=== PATIENT | female | born 1970 | race Caucasian/White ===

== ENCOUNTER 2025-01-02 00:29 | Emergency (ER) | payer BC ==
[~2025-01-02] VITALS: Ht 160 cm; Wt 54.5 kg
[2025-01-02 00:37] VITALS: BP 106/67; PULSE 89; RESP 20; O2SAT 98
[2025-01-02] MEDS: TETanus/Pertussis (Acell)/Diphther VAC/PF (Tdap-Adult) 0.5ml syringe IMVAC ONE (01:12)
[2025-01-02] MEDS: LIDOcaine 1% W/epiNEPHrine 1:100,000 20ml vial SQ ONE (01:12)
--- NOTE | 2025-01-02 01:41 | Physician Documentation ---
History of Present Illness ~ Chief Complaint: Laceration Stated Complaint: ARM LAC Time Seen by MD: 01:04 HPI This is a 54-year-old previously healthy female who presents for evaluation of cut to the left forearm. She states she accidentally cut her forearm with a knife around 2300. She has been drinking. Reports immediate sharp nonradiating pain. Bleeding controlled on scene because her daughter is an RN. The particular palliating or aggravating factors. Uncertain of last tetanus. Adamantly denies any self-harm. She does drink. Tetanus Within 5 Years: Yes Medication Reconciliation Allergies: Coded Allergies: No Known Allergies (Unverified , 01/02/25) Past Medical History Past Medical History: No Pertinent History Alcohol Use: Occasionally Drug Use: none Review of Systems ROS 10 point review of systems was performed and unless noted above in HPI is negative for acute process/complaint. Physical Exam Vital Signs: Temperature: 98.0, Heart Rate: 89, Respiratory Rate: 20, BP: 106/67, Pulse Oximetry: 98, Weight: 54.500 Oxygen Flow Rate: 0 Physical Exam Physical examination: GENERAL: Awake, alert, oriented, GCS 15, no apparent distress, non-toxic a ppearing, answers questions, follows commands appropriately. Examined in bed 18., accompanied by son-in-law HEENT: Atraumatic, normocephalic, pupils equal, extraocular muscles intact Active gross movements, sclerae anicteric, mucus membranes moist, no stridor. NECK: Midline, no JVD CARDIOVASCULAR: Good skin perfusion without evidence of pallor, mottling. PULMONARY: Nonlabored, symmetric chest rise, no audible wheezing, no accessory muscle use, no respiratory distress, speaking in full sentences. GASTROINTESTINAL: Not distended. NEUROLOGIC: Lucid with normal mental status. Normal facial symmetry. Moves all extremities symmetrically and with purpose. No truncal ataxia. Speech is fluid without evidence of dysarthria or aphasia, no focal deficits appreciated. EXTREMITIES: Acute deformities Skin: warm, dry PSYCHIATRIC: Normal affect, normal insight, normal concentration. Focused exam: [4 cm laceration to the left forearm, partial depth with a exposed subcutaneous fat. Tendon is intact. Neurovascularly intact. No active bleeding.] Procedures Laceration/Wound Repair Laceration : Anesthesia: Lidocaine w/ Epi Prep: irrigated by physician Repaired: skin Suture Size/Type: 3-0 (For the) Number of Superficial Sutures: 6 Dressing Applied: none Tolerated Procedure Well?: yes, no complications Progress Results/Orders Results/Orders Completed Orders - SAUL COVARRUBIAS DO Tetanus/Pertuss/Diph Acell/Pf (Boostrix (01/02/25 01:05) Lidocaine 1% W/Epi 1:100,000 (Xylocaine (01/02/25 01:05) Medications Received in ER Medications (Trade) Dose Ordered Sig/Samy Route PRN Reason Start Time Stop Time Status Last Admin Dose Admin (Boostrix vaccine syringe) 0.5 ml ONCE ONCE IMVAC 01/02/25 01:05 01/02/25 01:06 DC 01/02/25 01:12 0.5 ML Vital Signs 01/02/25 00:37 Temp 98.0 Pulse 89 Resp 20 B/P (MAP) 106/67 Pulse Ox 98 O2 Flow Rate 0 Medical Decision Making Findings Facility Status: ED Holds, RME process The plan was discussed with the patient, who demonstrates clear understanding of the plan and is in agreement with the plan unless otherwise noted in the chart. All questions have been answered, all concerns were addressed unless otherwise documented. I was available throughout their ED stay for frequent reassessment and questions. Differential Diagnoses (considered and possible or likely): [Forearm laceration, acute traumatic pain, encounter for tetanus toxoid administration] ??Differential Diagnoses (considered and unlikely, not requiring evaluation currently): [No evidence of neurovascular injury] MDM Data Please see HPI for the following: Independent Historians and external Records Review. Historian: [Patient] Independent Historians: ?[Son-in-law] Medication Management: [Reviewed medication list] Social History and determinants: [Reviewed] Please see the body of the note for the following: Any independent interpretations of ECG, imaging studies. All vitals signs/haemodynamics, ordered tests were independently reviewed and interpreted by myself. Nursing triage complaint and vitals reviewed, additional nursing notes were r eviewed as available and I agree unless otherwise noted or documented in contradiction in the chart Vital Signs: Independently reviewed Labs: Independently interpreted Imaging: Independently interpreted Old Medical Records: Independently reviewed, see HPI for relevant summary and information Pulse Oximetry: [100%] interpreted as [normal on room air] by me Additionally notably showing: [Hemodynamically stable] Tests considered but not ordered include: [Hematologic workup and imaging has been considered but does not appear to be necessary given clinical nature of diagnosis] Social Determinants of Health Impact: Patient was evaluated in [facility], or [facility] [place] to healthcare due to below par ratio of patient to medical providers. [] Comorbid Conditions Impacting Present Evaluation and Care/Treatment: [None] Management Discussions with other Healthcare Providers: [None] Treatment and Disposition Medication Management (Given or considered): []. See EMR for details Consideration for Hospitalization/Escalation/Deescalation of Care: Admission for observation has been considered, [however the patient is able to tolerate p.o., their symptoms are controlled, they are able to rely on oral medications, and their chief complaint/diagnosis can be managed on outpatient basis.] ?ED Course:?[Laceration was repaired. Patient tolerated procedure well.] ?Shared decision making:?[Patient is hemodynamically stable for discharge home with follow with their primary care provider. [ ] Specific and cautious return precautions provided and discussed with full understanding. Any incidental findings were also discussed and follow up recommendations given. [] All questions answered. Patient/family were able to verbalize back return precautions. Patient/family agree to plan. Copies of imaging and laboratory studies were provided.] Code status:?FULL Please see the full Electronic Medical Record for full details of nursing documentation, medications list, other records of complete past medical history and conditions, vital signs, laboratory studies, and any radiologic study interpretations by radiologists. Portions of this note were completed using [employer] dictation software and as a result there may exist minor errors in spelling. I have reviewed elements of past family and social history and agree as included in note. Departure Disposition: 01 HOME / SELF CARE / HOMELESS Impression: Primary Impression: Forearm laceration Additional Impressions: Acute traumatic pain Tetanus toxoid inoculation Condition: Improved Discharge Instructions: Laceration Care, Adult, [id number] Additional Instructions: Please return for suture removal in 7-10 days Referrals: NO PRIMARY CARE PROVIDER (PCP) Education Educated: Patient, Family Educated regarding: diagnosis, treatment, prognosis, need for follow up Signature Scribe Signature: No scribe Attestation: Date: Jan 02, 2025 Time: 01:41 This note accurately reflects clinical decisions, work performed by myself, Saul Covarrubias, SAUL TOBIN DO Jan 02, 2025 01:41
[2025-01-02 01:50] VITALS: TEMP 98
== END 2025-01-02 01:51 | disposition home or self-care (01) ==
LOC: ER 00:29
DX: S51.812A Laceration without foreign body of left forearm, initial encounter (principal); G89.11 Acute pain due to trauma; Z72.89 Other problems related to lifestyle; W26.0XXA Contact with knife, initial encounter; Y93.89 Activity, other specified; Y92.89 Other specified places as the place of occurrence of the external cause; Y99.8 Other external cause status
CPT/HCPCS: 12002; 90471; 90715; 99283; A6258; A6449